=== PATIENT | female | born 1980 | race Caucasian/White ===

== ENCOUNTER 2017-02-14 05:29 | Inpatient (IN) | payer OTHER ==
[~2017-02-14] VITALS: Ht 162.6 cm; Wt 82.7 kg
[~2017-02-14 05:29] MED LIST: TRAM50TA4 PO
[2017-02-14] MEDS ORDERED: RINGERS SOLUTION,LACTATED 1,000 ML IV ONE ×3 (05:46→10:43)
[2017-02-14] MEDS ORDERED: CeFAZolin 2 GM/DEXTROSE 50 ML IV ONE ×2 (05:46→07:00)
[2017-02-14] MEDS ORDERED: SODIUM CHLORIDE 0.9% 20 ML ONE (07:01)
[2017-02-14] MEDS ORDERED: SODIUM CHLORIDE 0.9% 0 ML IV ONE (07:02)
[2017-02-14] MEDS ORDERED: PROPOFOL 1000 MG/ISO-OSM 100 ML IV ONE (07:20)
[2017-02-14] MEDS: BACITRACIN 50,000 UNITS/VIAL ONE ×4 (08:53→09:26)
[2017-02-14] MEDS: GELATIN SPONGE,ABSORBABLE 100 MM TP ONE ×2 (08:53→09:28)
[2017-02-14] MEDS: THROMBIN, BOVINE 20000 UNITS/VIAL POWDER TP ONE ×2 (08:53→09:27)
[2017-02-14 09:00] LABS: APPEARANCE,URINE CLOUDY (CLEAR); GLUCOSE, URINE (UA) NEGATIVE (NEGATIVE); KETONES,URINE NEGATIVE (NEGATIVE); LEUKOCYTE ESTERASE ,URINE SMALL (NEGATIVE); OCCULT BLOOD,URINE SMALL (NEGATIVE); PH,URINE 6.5 (5.0-8.0); PROTEIN,URINE NEGATIVE (NEGATIVE)
[2017-02-14 09:06] LABS: ADD UA MICROSCOPIC YES
[2017-02-14] MEDS ORDERED: PROMETHAZINE HCL 25 MG/ML VIAL IM PRN (09:15)
[2017-02-14] MEDS ORDERED: HYDROmorphone 2 MG/ML SYRINGE IVP PRN (09:15)
[2017-02-14] MEDS ORDERED: FentaNYL CITRATE-PF 100 MCG/2 ML VIAL IVP PRN (09:15)
[2017-02-14] MEDS: OXYGEN THERAPY IH SCH ×2 (09:15→20:00)
[2017-02-14] MEDS ORDERED: MEPERIDINE-PF 25 MG/ML SYRINGE IVP PRN (09:15)
[2017-02-14] MEDS ORDERED: OxyCODONE HCL/ACETAMINOPHEN 5-325 MG TABLET PO PRN (09:15)
[2017-02-14 09:17] LABS: RBC,URINE 0-2 /HPF (0-2); SQUAMOUS EPITHELIAL CELL,UR Moderate /LPF (None Seen)
[2017-02-14] MEDS: BUPIVACAINE HCL/PF 0.5% 30 ML VIAL ONE ×2 (09:23→10:45)
[2017-02-14] MEDS: BUPIVACAINE LIPOSOME/PF 1.3%-13.3MG/ML SUSPENSION 20 ML VIAL INJ ONE ×2 (09:29→10:45)
[2017-02-14] MEDS ORDERED: HYDROCODONE/ACETAMINOPHEN 5-325 MG TABLET PO PRN (11:30)
[2017-02-14] MEDS ORDERED: 0.9% SODIUM CHLORIDE 10 ML SYRINGE IVP PRN (11:30)
[2017-02-14] MEDS ORDERED: ACETAMINOPHEN 325 MG TABLET PO PRN (11:30)
[2017-02-14] MEDS ORDERED: ONDANSETRON HCL 4 MG/2 ML VIAL IVP PRN (11:30)
[2017-02-14] MEDS ORDERED: BISACODYL 10 MG RECTAL RECTAL SUPPOSITORY PR PRN (11:30)
[2017-02-14] MEDS ORDERED: MAGNESIUM HYDROXIDE SUSPENSION 30 ML UDCUP PO PRN (11:30)
[2017-02-14] MEDS ORDERED: MIDAZOLAM HCL 2 MG/2 ML VIAL IVP ONE (12:00)
[2017-02-14] MEDS ORDERED: DEXAMETHASONE SOD PHOS 4 MG/ML VIAL IVP ONE (12:00)
[2017-02-14] MEDS ORDERED: PROPOFOL 1% 20 ML VIAL IVP ONE (12:00)
[2017-02-14] MEDS ORDERED: GLYCOPYRROLATE 0.2 MG/ML VIAL IM ONE (12:00)
[2017-02-14] MEDS ORDERED: ROCURONIUM BROMIDE 10 MG/ML 5 ML VIAL IVP ONE (12:00)
[2017-02-14] MEDS ORDERED: NEOSTIGMINE METHYLSULFATE 1 MG/ML 10 ML VIAL IVP ONE (12:00)
[2017-02-14] MEDS ORDERED: KETAMINE HCL 50 MG/ML 10 ML VIAL IVP ONE (12:00)
[2017-02-14] MEDS ORDERED: METOCLOPRAMIDE HCL 5 MG/ML 2 ML VIAL IVP ONE (12:00)
[2017-02-14] MEDS ORDERED: ONDANSETRON HCL 4 MG/2 ML VIAL IVP ONE (12:00)
[2017-02-14] MEDS ORDERED: KETOROLAC TROMETHAMINE 60 MG/2 ML VIAL IM ONE (12:00)
[2017-02-14] MEDS ORDERED: FentaNYL CITRATE-PF 250 MCG/5 ML VIAL IVP ONE (12:00)
[2017-02-14] MEDS ORDERED: SUCCINYLCHOLINE CHLORIDE 20 MG/ML 10 ML VIAL IVP ONE (12:00)
[2017-02-14] MEDS ORDERED: HYDROmorphone 2 MG/ML SYRINGE IVP ONE (12:00)
[2017-02-14] MEDS ORDERED: LIDOCAINE HCL/PF 2% 5 ML VIAL INJ ONE (12:00)
[2017-02-14 12:25] VITALS: BP 119/50
[2017-02-14] MEDS: CeFAZolin 2 GM/DEXTROSE 50 ML IV SCH ×2 (14:12→21:37)
[2017-02-14 15:35] VITALS: BP 104/72
[2017-02-14] MEDS: HYDROmorphone 2 MG/ML SYRINGE IVP PRN ×3 (15:39→22:45)
[2017-02-14] MEDS ORDERED: CYCLOBENZAPRINE HCL 10 MG TABLET PO SCH (16:00)
[2017-02-14] MEDS: ACETAMINOPHEN 1000 MG/ISO-OSM 100 ML IV SCH (17:31)
[2017-02-14 18:10] VITALS: BP 125/72
[2017-02-14] MEDS: CYCLOBENZAPRINE HCL 10 MG TABLET PO SCH (18:15)
[2017-02-14 19:20] VITALS: BP 104/57
[2017-02-14] MEDS: DOCUSATE SODIUM 100 MG CAPSULE PO SCH (20:34)
[2017-02-14] MEDS: ZOLPIDEM TARTRATE 5 MG TABLET PO SCH (20:34)
[2017-02-14] MEDS ORDERED: SODIUM CHLORIDE 0.9% 250 ML IV ONE (21:36)
[2017-02-15] VITALS (7 sets, daily range): BP systolic 96–125; BP diastolic 52–70
[2017-02-15] MEDS: ACETAMINOPHEN 1000 MG/ISO-OSM 100 ML IV SCH ×3 (00:10→16:19)
[2017-02-15] MEDS: CYCLOBENZAPRINE HCL 10 MG TABLET PO SCH ×4 (00:10→17:58)
[2017-02-15] MEDS: CeFAZolin 2 GM/DEXTROSE 50 ML IV SCH (06:20)
[2017-02-15 06:50] LABS: EOSINOPHILS % (AUTO) 0.2 % (1.0-6.0); HEMATOCRIT 34.1 % (36-46); HEMOGLOBIN 11.6 g/dL (12.0-16.0); LYMPHOCYTES # (AUTO) 1.2 K/uL (1.0-4.8); LYMPHOCYTES % (AUTO) 7.8 % (22.0-44.0); MEAN CORPUSCULAR HEMOGLOBIN 29.5 pg (26.0-34.0); MEAN CORPUSCULAR HGB CONC 34.1 G/dL (31.0-37.0); MEAN CORPUSCULAR VOLUME 87 fL (80-100); MONOCYTES # (AUTO) 1.2 K/uL (0.1-1.0); MONOCYTES % (AUTO) 8.1 % (2.0-9.0); NEUTROPHILS # (AUTO) 12.4 K/uL (1.8-7.7); NEUTROPHILS % (AUTO) 83.9 % (40.0-70.0); PLATELET COUNT (AUTO) 231 K/uL (150-450); RED BLOOD CELL COUNT(AUTO) 3.93 MIL/uL (4.00-5.20); RED CELL DISTRIBUTION WIDTH 12.9 % (11.5-14.5); WHITE BLOOD COUNT (AUTO) 14.7 K/uL (4.5-11.0)
[2017-02-15 06:58] LABS: ANION GAP 9 mmol/L (8-16); CALCIUM, TOTAL 8.3 mg/dL (8.8-10.5); CARBON DIOXIDE 26 mmol/L (22-29); CHLORIDE 104 mmol/L (98-107); CREATININE 0.71 mg/dL (0.60-1.30); GLOMERULAR FILTR. RATE CALC > 60 mL/min (>60); POTASSIUM 3.8 mmol/L (3.5-5.1); SODIUM SERUM 139 mmol/L (136-145); UREA NITROGEN, BLOOD 8 mg/dL (7-18)
[2017-02-15] MEDS: OXYGEN THERAPY IH SCH ×2 (08:00→20:00)
[2017-02-15] MEDS: HYDROmorphone 2 MG/ML SYRINGE IVP PRN ×4 (08:15→20:08)
[2017-02-15] MEDS ORDERED: SODIUM CHLORIDE 0.9% 500 ML IV ONE (08:35)
[2017-02-15] MEDS: DOCUSATE SODIUM 100 MG CAPSULE PO SCH ×2 (09:22→20:07)
[2017-02-15] MEDS ORDERED: PERCT10 PO (14:48)
[2017-02-15] MEDS ORDERED: CYCL-309 PO (14:50)
[2017-02-15] MEDS: OxyCODONE HCL/ACETAMINOPHEN 5-325 MG TABLET PO PRN (18:02)
[2017-02-15] MEDS: ZOLPIDEM TARTRATE 5 MG TABLET PO SCH (20:08)
[2017-02-16] MEDS: CYCLOBENZAPRINE HCL 10 MG TABLET PO SCH ×5 (00:15→23:46)
[2017-02-16 04:00] VITALS: BP 110/69
[2017-02-16 05:36] LABS: BASOPHILS # (AUTO) 0.02 K/uL (0.00-0.20); BASOPHILS % (AUTO) 0.2 % (0.0-2.0); EOSINOPHILS # (AUTO) 0.05 K/uL (0.00-0.70); EOSINOPHILS % (AUTO) 0.52 % (1.0-6.0); HEMATOCRIT 32.7 % (36-46); HEMOGLOBIN 10.9 g/dL (12.0-16.0); LYMPHOCYTES # (AUTO) 1.6 K/uL (1.0-4.8); LYMPHOCYTES % (AUTO) 17.7 % (22.0-44.0); MEAN CORPUSCULAR HEMOGLOBIN 29.8 pg (26.0-34.0); MEAN CORPUSCULAR HGB CONC 33.2 G/dL (31.0-37.0); MEAN CORPUSCULAR VOLUME 90 fL (80-100); MONOCYTES # (AUTO) 0.8 K/uL (0.1-1.0); MONOCYTES % (AUTO) 9.2 % (2.0-9.0); NEUTROPHILS # (AUTO) 6.6 K/uL (1.8-7.7); NEUTROPHILS % (AUTO) 72.3 % (40.0-70.0); PLATELET COUNT (AUTO) 193 K/uL (150-450); RED BLOOD CELL COUNT(AUTO) 3.64 MIL/uL (4.00-5.20); WHITE BLOOD COUNT (AUTO) 9.1 K/uL (4.5-11.0)
[2017-02-16 08:00] VITALS: BP 117/72
[2017-02-16] MEDS: HYDROmorphone 2 MG/ML SYRINGE IVP PRN (08:42)
[2017-02-16] MEDS: DOCUSATE SODIUM 100 MG CAPSULE PO SCH ×2 (08:43→20:46)
[2017-02-16] MEDS: OxyCODONE HCL/ACETAMINOPHEN 5-325 MG TABLET PO PRN ×4 (10:25→23:47)
[2017-02-16 12:00] VITALS: BP 105/72
[2017-02-16 16:00] VITALS: BP 116/67
[2017-02-16 16:24] LABS: APPEARANCE,URINE TURBID (CLEAR); GLUCOSE, URINE (UA) NEGATIVE (NEGATIVE); KETONES,URINE NEGATIVE (NEGATIVE); LEUKOCYTE ESTERASE ,URINE LARGE (NEGATIVE); OCCULT BLOOD,URINE LARGE (NEGATIVE); PROTEIN,URINE TRACE (NEGATIVE)
[2017-02-16 16:29] LABS: ADD UA MICROSCOPIC YES
[2017-02-16 16:32] LABS: RBC,URINE 0-2 /HPF (0-2)
[2017-02-16 16:33] LABS: SQUAMOUS EPITHELIAL CELL,UR Many /LPF (None Seen)
[2017-02-16 20:00] VITALS: BP 115/51
[2017-02-16] MEDS: OXYGEN THERAPY IH SCH (20:00)
[2017-02-16] MEDS: ZOLPIDEM TARTRATE 5 MG TABLET PO SCH (20:47)
[2017-02-16 23:52] VITALS: BP 109/67
[2017-02-17 04:38] VITALS: BP 106/55
[2017-02-17] MEDS: OxyCODONE HCL/ACETAMINOPHEN 5-325 MG TABLET PO PRN ×3 (04:42→12:32)
[2017-02-17] MEDS: CYCLOBENZAPRINE HCL 10 MG TABLET PO SCH ×2 (06:26→11:51)
[2017-02-17 07:00] VITALS: BP 105/61
[2017-02-17] MEDS: DOCUSATE SODIUM 100 MG CAPSULE PO SCH (07:50)
[2017-02-17] MEDS: OXYGEN THERAPY IH SCH (07:51)
[2017-02-17 11:00] VITALS: BP 110/64
== END 2017-02-17 15:15 | disposition home or self-care (01) | DRG 460 ==
LOC: 4E 05:29
PROVIDERS: ADMIT Neurological Surgery; ATTEND Neurological Surgery
PROC: 0SB40ZZ Excision of Lumbosacral Disc, Open Approach (ICD-10-PCS; 2017-02-14)
PROC: 0SG30AJ Fusion of Lumbosacral Joint with Interbody Fusion Device, Posterior Approach, Anterior Column, Open Approach (ICD-10-PCS; principal; 2017-02-14 08:53)
DX: M51.27 Other intervertebral disc displacement, lumbosacral region (principal); S32.059A Unspecified fracture of fifth lumbar vertebra, initial encounter for closed fracture; N39.0 Urinary tract infection, site not specified; S32.10XA Unspecified fracture of sacrum, initial encounter for closed fracture; E66.9 Obesity, unspecified; W19.XXXA Unspecified fall, initial encounter; Y93.89 Activity, other specified; Y92.512 Supermarket, store or market as the place of occurrence of the external cause; Y99.8 Other external cause status; Z68.31 Body mass index [BMI] 31.0-31.9, adult
CPT/HCPCS: 86850; 86900; 86901; 86920; 87081; 87086; 88304; 97116; 97161; 97165; 97530; 97535; C1713; C9290; G0238; J0131; J0330; J0690; J1030; J1100; J1170; J1885; J2250; J2405; J2550; J2704; J2765; J3010; J3490; J7040; J7050; J7120